=== PATIENT | male | born 1955 | race Caucasian/White ===

== ENCOUNTER → 2019-01-29 | Outpatient (CLI) | payer MEDICARE, OTHER | LOC: COL.RAD 12:44 | DX: E05.90 Thyrotoxicosis, unspecified without thyrotoxic crisis or storm (principal) ==

== ENCOUNTER → 2019-02-17 | Outpatient (CLI) | payer MEDICARE, OTHER | LOC: COL.RAD 10:01 | DX: E05.90 Thyrotoxicosis, unspecified without thyrotoxic crisis or storm (principal) | CPT/HCPCS: A9516 ==